=== PATIENT | male | born 1985 | race Asian ===

== ENCOUNTER 2017-12-29 19:06 | Emergency (ER) | payer OTHER ==
[2017-12-29 19:13] VITALS: BP 135/79
[2017-12-29] MEDS ORDERED: TDAP ADULT 0.5 ML INJ (BOOSTRIX) IM ONE (19:21)
--- NOTE | 2017-12-29 19:28 | EDPHY ---
H & P Time Seen by Provider: 12/29/17 19:18 HPI/ROS: CHIEF COMPLAINT: Left thumb laceration HISTORY OF PRESENT ILLNESS: 32-year-old [id number] male sustained accidental laceration to his left thumb dorsal aspect when he was holding a pair of sharp tweezers. Tetanus out-of-date. This was accidental. No paresthesia no sensory or motor deficit. PHYSICAL EXAM (Prior to examination, patient consented to physical exam, hands were washed and my usual and customary physical exam procedures followed) 1) GENERAL: Well-developed, well-nourished, alert and oriented. Appears to be in no acute distress. 2) HEAD: Normocephalic 3) HEENT: sclera anicteric 4) LUNGS: Breathing comfortably. 5) SKIN: Left thumb dorsal aspect the MCP 1.5 cm well-demarcated linear superficial laceration with no underlying tendon dysfunction or injury. 6) MUSCULOSKELETAL: Opposition abduction abduction flexion extension intact no deficits 7) NEUROLOGIC: Full sensation Smoking Status: Never smoked Constitutional: Initial Vital Signs Temperature (C) 36.9 C 12/29/17 19:10 Heart Rate 79 12/29/17 19:10 Respiratory Rate 16 12/29/17 19:10 Blood Pressure 135/79 H 12/29/17 19:10 O2 Sat (%) 95 12/29/17 19:10 O2 Delivery Mode Room Air Allergies/Adverse Reactions: No Known Allergies Allergy (Unverified 12/29/17 19:10) Home Medications: Medication Instructions Recorded NK [No Known Home Meds] 12/29/17 MDM/Departure - MDM Procedures: Procedure: Laceration repair. I explained the indications, risks and benefits for both laceration repair and anesthetic administration. Verbal consent was obtained from the patient . The laceration on the left thumb was anesthetized using 0.5% bupivicaine without epinephrine . After anesthetic administered the patient was observed for a period of time and had no apparent adverse effects. The wound was cleaned, prepped, draped in normal sterile fashion and explored to its base. No foreign body seen, no foreign bodies palpated. There were no deep structures involved. No tendon injury was identified. The wound was repaired with 3 simple interrupted 5 O Prolene sutures. The wound repair was simple. The procedure was performed by myself. Patient has been informed that scarring will occur, although efforts have been made to minimize this. Medications Given: Discontinued Medications Diphtheria/Tetanus/Acell Pertussis (Boostrix) 0.5 ml IM .ONCE ONE Stop: 12/29/17 19:22 Last Admin: 12/29/17 19:25 Dose: 0.5 ml ED Course/Re-evaluation: I saw this patient independently based on established practice protocols. Care of patient under supervision of secondary supervising physician Dr Goss . - Depart Disposition: Home, Routine, Self-Care Clinical Impression: Laceration of left thumb Qualifiers: Encounter type: initial encounter Damage to nail status: without damage Foreign body presence: without foreign body Qualified Code(s): S61.012A - Laceration without foreign body of left thumb without damage to nail, initial encounter Condition: Good Instructions: Care For Your Stitches (ED), Laceration (ED) Additional Instructions: Return to the ER if you develop redness, swelling, discharge, warmth to the wound, red streaks going up your arm, or any other symptoms that concern you. Referrals: Return, to the ER in 10 days for suture removal [Other] - 01/08/18
== END 2017-12-29 20:02 | disposition home or self-care (01) ==
PROC: 0HQGXZZ Repair Left Hand Skin, External Approach (ICD-10-PCS; principal; 2017-12-29)
DX: S61.012A Laceration without foreign body of left thumb without damage to nail, initial encounter (principal); Z23 Encounter for immunization; W26.8XXA Contact with other sharp object(s), not elsewhere classified, initial encounter; Y99.8 Other external cause status